=== PATIENT | female | born 2000 | race African-American/Black ===

== ENCOUNTER 2020-06-22 10:18 | Emergency (ER) | payer SELFPAY ==
[2020-06-22] MEDS ORDERED: Lidocaine Viscous Sol 2% 15 ml UD Cup ONE (11:30)
[2020-06-22] MEDS ORDERED: Mag-Al Plus 1200 MG/1200 MG/120 MG/30 ML UDCUP ONE (11:30)
== END 2020-06-22 12:08 | disposition home or self-care (01) ==
LOC: CSHERS 10:18
DX: R10.13 Epigastric pain (principal); J45.909 Unspecified asthma, uncomplicated; Z79.899 Other long term (current) drug therapy
CPT/HCPCS: 99283

== ENCOUNTER 2021-03-02 18:53 | Emergency (ER) | payer OTHER ==
[2021-03-02] MEDS ORDERED: Mag-Al Plus 1200 MG/1200 MG/120 MG/30 ML UDCUP ONE (19:31)
[2021-03-02] MEDS ORDERED: Lidocaine Viscous Sol 2% 15 ml UD Cup ONE (19:31)
== END 2021-03-02 20:58 | disposition home or self-care (01) ==
LOC: CSHERS 18:53
DX: J02.9 Acute pharyngitis, unspecified (principal); K21.9 Gastro-esophageal reflux disease without esophagitis; J45.909 Unspecified asthma, uncomplicated
CPT/HCPCS: 70360

== ENCOUNTER 2021-07-17 10:59 | Emergency (ER) | payer OTHER ==
[2021-07-17 11:58] LABS: Bilirubin Neg (Negative); Blood, Urine Negative (Negative); Clarity Clear (Clear); Glucose, Urine (Dipstick) Normal (Negative); Ketone, Urine Negative (Negative); Leukocyte Negative (Negative); Nitrite Negative (Negative); Protein, Urine (Dipstick) Negative (Neg-Trace); pH, Urine 6.5 (5.0-9.0)
[2021-07-17 12:03] LABS: #Basophils 0.1 10x3/uL (0.0-0.2); #Eosinphils 0.1 10x3/uL (0.0-0.5); #Monocytes 0.5 10x3/uL (0.0-1.1); %Basophils 0.8 % (0.0-2.0); %Eosinophils 1.8 % (0.0-6.0); %Lymphocytes 41.3 % (18.0-47.0); %Monocytes 7.6 % (0.0-10.0); %Neutrophils 47.7 % (40.0-75.0); Hemoglobin 14.3 g/dL (12.0-15.5); Mean Corpuscular HGB CONC 34.3 g/dL (32.0-36.0); Mean Corpuscular Hemoglobin 29.3 pg (27.0-33.0); Mean Corpuscular Volume 85.5 fl (81.6-98.3); Mean Platelet Volume 9.8 fl (7.4-10.4); Platelet Count 310 10x3/uL (150-450); RBC Distribution Width 14.1 % (11.5-14.5); Red Blood Cell (RBC) Count 4.88 10x6/uL (3.90-5.03); White Blood Cell (WBC) Count 6.2 10x3/uL (3.5-10.5)
[2021-07-17 12:06] LABS: Amphetamine Not Detected (NotDetected); BHCG - Serum Negative (NEGATIVE); Barbiturates Screen Not Detected (NotDetected); Benzodiazepine Screen Not Detected (NotDetected); Cocaine Metabolite Screen Not Detected (NotDetected); Methadone Not Detected (NotDetected); Methamphetamine Not Detected (NotDetected); Opiate Screen Not Detected (NotDetected); Oxycodone Screen Not Detected (NotDetected); Phencyclidine (PCP) Not Detected (NotDetected); Pregs Control Background? CLEAR/WHITE (CLR/WHITE); Pregs Control Bar Appear? YES (CONTROL BAR); THC/Cannabinoid Screen Not Detected (NotDetected); Tricyclic Screen Not Detected (NotDetected)
[2021-07-17] MEDS ORDERED: Acetaminophen 500 MG TAB ONE (12:13)
[2021-07-17 12:14] LABS: ALT (SGPT) 39 U/L (8-55); AST (SGOT) 31 U/L (5-34); Acetaminophen Less than 10.0 mcg/mL (10.0-30.0); Albumin 4.5 g/dL (3.5-5.0); Alcohol Less than 10 mg/dL (Less than 10); Alkaline Phosphatase 57 U/L (40-110); Anion Gap 10 mmol/L (10-20); BUN (Urea Nitrogen) 10 mg/dL (7.0-18.7); Bilirubin, Total 0.5 mg/dL (0.2-1.2); Calc. Creatinine Clearance 0 mL/min (70-130); Calcium 9.4 mg/dL (7.8-10.44); Carbon Dioxide 26 mmol/L (22-29); Chloride 104 mmol/L (98-107); Globulin 3.5 g/dL (2.4-3.5); Glucose 89 mg/dL (70-105); Potassium 3.3 mmol/L (3.5-5.1); Salicylate Less than 8.0 mg/dL (15.0-30.0); Sodium 137 mmol/L (136-145)
[2021-07-17] MEDS ORDERED: Potassium Chloride 20 MEQ TAB ONE (15:59)
[2021-07-17] MEDS ORDERED: Ketorolac Tromethamine 30 MG/ML VIAL ONE (17:10)
== END 2021-07-17 17:30 | disposition home or self-care (01) ==
LOC: CSHERS 10:59
DX: F43.0 Acute stress reaction (principal); F32.A Depression, unspecified; J45.909 Unspecified asthma, uncomplicated; K21.9 Gastro-esophageal reflux disease without esophagitis; Z79.899 Other long term (current) drug therapy
CPT/HCPCS: 36415; 80053; 80306; 80307; 81003; 84703; 85025; 96372; 99285; J1885

== ENCOUNTER 2021-08-15 20:06 | Emergency (ER) | payer OTHER ==
[2021-08-15] MEDS ORDERED: Acetaminophen 500 MG TAB ONE (22:28)
== END 2021-08-15 23:09 | disposition home or self-care (01) ==
LOC: CSHERS 20:06
DX: R11.10 Vomiting, unspecified (principal); R51.9 Headache, unspecified; K21.9 Gastro-esophageal reflux disease without esophagitis; Z79.899 Other long term (current) drug therapy
CPT/HCPCS: 99283

== ENCOUNTER 2021-10-19 12:47 | Emergency (ER) | payer OTHER ==
[2021-10-19] MEDS ORDERED: Acetaminophen 500 MG TAB ONE (13:39)
[2021-10-19] MEDS ORDERED: Ibuprofen 200 MG TAB ONE (13:39)
[2021-10-19] MEDS ORDERED: Dexamethasone 10 MG/ML VIAL ONE (14:23)
== END 2021-10-19 15:20 | disposition home or self-care (01) ==
LOC: CSHERS 12:47
DX: J03.90 Acute tonsillitis, unspecified (principal); Z79.899 Other long term (current) drug therapy; K21.9 Gastro-esophageal reflux disease without esophagitis
CPT/HCPCS: 87081; 87430; 99283; J1100

== ENCOUNTER 2022-03-31 20:15 | Emergency (ER) | payer OTHER ==
[2022-03-31 20:44] LABS: Bilirubin Neg (Negative); Blood, Urine Negative (Negative); Clarity Clear (Clear); Glucose, Urine (Dipstick) Normal (Negative); Ketone, Urine Negative (Negative); Leukocyte Negative (Negative); Nitrite Negative (Negative); Protein, Urine (Dipstick) Negative (Neg-Trace); Specific Gravity, Urine 1.015 (1.005-1.030); Urobilinogen Normal mg/dL (Less than 2)
[2022-03-31 20:49] LABS: #Basophils 0.1 10x3/uL (0.0-0.2); #Eosinphils 0.2 10x3/uL (0.0-0.5); #Monocytes 0.5 10x3/uL (0.0-1.1); #Neutrophils 2.7 10x3/uL (1.5-8.4); %Basophils 0.8 % (0.0-2.0); %Eosinophils 2.3 % (0.0-6.0); %Lymphocytes 48.1 % (18.0-47.0); %Monocytes 7.2 % (0.0-10.0); %Neutrophils 41.4 % (40.0-75.0); Hemoglobin 13.1 g/dL (12.0-15.5); Mean Corpuscular HGB CONC 34.5 g/dL (32.0-36.0); Mean Corpuscular Hemoglobin 27.2 pg (27.0-33.0); Mean Platelet Volume 9.6 fl (7.4-10.4); Platelet Count 298 10x3/uL (150-450); RBC Distribution Width 14.3 % (11.5-14.5); Red Blood Cell (RBC) Count 4.81 10x6/uL (3.90-5.03); White Blood Cell (WBC) Count 6.4 10x3/uL (3.5-10.5)
[2022-03-31 20:55] LABS: Amphetamine Not Detected (NotDetected); Barbiturates Screen Not Detected (NotDetected); Benzodiazepine Screen Not Detected (NotDetected); Cocaine Metabolite Screen Not Detected (NotDetected); Methadone Not Detected (NotDetected); Methamphetamine Not Detected (NotDetected); Opiate Screen Not Detected (NotDetected); Oxycodone Screen Not Detected (NotDetected); Phencyclidine (PCP) Not Detected (NotDetected); THC/Cannabinoid Screen Not Detected (NotDetected); Tricyclic Screen Not Detected (NotDetected)
[2022-03-31 21:00] LABS: Acetaminophen Less than 10.0 mcg/mL (10.0-30.0); Alcohol Less than 10 mg/dL (Less than 10); CK (CPK) 154 U/L (29-168); Salicylate Less than 8.0 mg/dL (15.0-30.0)
[2022-03-31 21:01] LABS: ALT (SGPT) 13 U/L (8-55); AST (SGOT) 19 U/L (5-34); Albumin 4.3 g/dL (3.5-5.0); Alkaline Phosphatase 52 U/L (40-110); Anion Gap 13 mmol/L (10-20); BUN (Urea Nitrogen) 7 mg/dL (7.0-18.7); Bilirubin, Total 0.4 mg/dL (0.2-1.2); Calc. Creatinine Clearance 0 mL/min (70-130); Calcium 9.2 mg/dL (7.8-10.44); Carbon Dioxide 23 mmol/L (22-29); Chloride 107 mmol/L (98-107); Estimated GFR 90; Globulin 3.4 g/dL (2.4-3.5); Glucose 89 mg/dL (70-105); Potassium 3.6 mmol/L (3.5-5.1); Protein, Total 7.7 g/dL (6.0-8.3); Sodium 139 mmol/L (136-145)
[2022-03-31 21:05] LABS: BHCG - Serum Negative (NEGATIVE); Pregs Control Background? CLEAR/WHITE (CLR/WHITE); Pregs Control Bar Appear? YES (CONTROL BAR)
== END 2022-03-31 23:04 | disposition home or self-care (01) ==
LOC: CSHERS 20:15
DX: F41.9 Anxiety disorder, unspecified (principal); K21.9 Gastro-esophageal reflux disease without esophagitis; Z79.899 Other long term (current) drug therapy
CPT/HCPCS: 80053; 80306; 80307; 81003; 82550; 84443; 84703; 85025; 99285

== ENCOUNTER 2022-05-05 21:07 | Emergency (ER) | payer OTHER | END 2022-05-06 01:01 | disposition left against medical advice (07) | LOC: CSHERS 21:07 | DX: Z53.21 Procedure and treatment not carried out due to patient leaving prior to being seen by health care provider (principal) ==

== ENCOUNTER 2022-07-23 13:37 | Emergency (ER) | payer OTHER ==
[2022-07-23] MEDS ORDERED: Ketorolac Tromethamine 30 MG/ML VIAL ONE (16:45)
== END 2022-07-23 16:49 | disposition home or self-care (01) ==
LOC: CSHERS 13:37
DX: J01.10 Acute frontal sinusitis, unspecified (principal)
CPT/HCPCS: 96372; 99283; J1885